=== PATIENT | male | born 1945 | race African-American/Black ===

== ENCOUNTER 2017-01-19 00:27 | Emergency (ER) | payer MEDICARE, OTHER ==
[~2017-01-19] VITALS: Ht 172.7 cm; Wt 59.4 kg
[~2017-01-19 00:27] MED LIST: ACET1TAB12 PO; QUET100T PO
[2017-01-19 00:44] VITALS: BP 133/79
--- NOTE | 2017-01-19 01:15 | NUR ---
AFTER TRIAGE, PT STARTED YELLING AT [facility] STAFF, SAYING HE WANTS A BED AND FOOD. AFTER TELLING PATIENT OUR TRIAGE PROCESS, PT DID NOT WANT TO WAIT, REFUSED BLOOD DRAW, AND THEN LEFT [facility] ED
== END 2017-01-19 01:17 | disposition left against medical advice (07) ==
LOC: ER 00:33
DX: Z53.21 Procedure and treatment not carried out due to patient leaving prior to being seen by health care provider (principal)
CPT/HCPCS: A4606; Z7610